=== PATIENT | male | born 1985 | race Caucasian/White ===

== ENCOUNTER 2017-08-06 06:27 | Emergency (ER) | payer SELFPAY | END 2017-08-06 08:20 | disposition left against medical advice (07) | LOC: FTE 08:20 | DX: Z53.21 Procedure and treatment not carried out due to patient leaving prior to being seen by health care provider (principal) ==

== ENCOUNTER 2018-01-27 14:08 | Emergency (ER) | payer SELFPAY ==
[2018-01-27] MEDS: SOD CHLORIDE 0.9% 1,000 ML IV (15:08)
[2018-01-27] MEDS: CEFTRIAXONE 1 GM/50 ML (PMX) 50 ML IVPB (15:08)
[2018-01-27 15:19] LABS: AADO2 Arterial 11.7 mmHg (7.0-24.0); Allen Test ACCEPTAB; Arterial Base Excess 0.7 mmol/L (-3.0-3); Arterial Blood Gas Oxygen Sat 98.1 mmHG (95.0-98.0); Arterial COHb 1.7 % (0.0-3.0); Arterial Fraction of Oxyhgb 96.3 % (93.0-99.0); Arterial HCO3 22.5 mmol/L (22.0-26.0); Arterial MetHb 0.1 % (0.0-1.5); Arterial Total Hemglobin 16.2 g/dl (12.0-18.0); Arterial pCO2 29.5 mmhg (35-45); MODE ROOM AIR; Site Right Radial
[2018-01-27 15:27] LABS: ADD MAN DIFF? NO
[2018-01-27 15:31] LABS: WHITE BLOOD COUNT 11.7 10^3/ul (4.8-10.8)
[2018-01-27 15:31] LABS: BASOPHIL # 0.1 10^3/ul (0.0-0.1); BASOPHILS % 0.6 % (0.0-2.0); EOSINOPHILS # 0.2 10^3/ul (0.0-0.5); EOSINOPHILS % 1.6 % (0.0-7.0); HEMATOCRIT 44.2 % (42.0-52.0); HEMOGLOBIN 15.8 g/dl (14.0-18.0); LYMPHOCYTES # 3.9 10^3/ul (0.8-2.9); LYMPHOCYTES % 33.5 % (15.0-51.0); MEAN CORPUSCULAR HEMOGLOBIN 29.9 pg (29.0-33.0); MEAN CORPUSCULAR HGB CONC 35.7 g/dl (32.0-37.0); MEAN CORPUSCULAR VOLUME 83.7 fl (82.0-101.0); MEAN PLATELET VOLUME 11.1 fl (7.4-10.4); MONOCYTE # 0.8 10^3/ul (0.3-0.9); MONOCYTES % 6.5 % (0.0-11.0); NEUTROPHIL # 6.7 10^3/ul (1.6-7.5); NEUTROPHILS % 57.5 % (39.0-77.0); PLATELET COUNT 269 10^3/UL (140-415); RED BLOOD COUNT 5.28 10^6/ul (4.70-6.10); RED CELL DISTRIBUTION WIDTH 11.9 % (11.5-14.5)
[2018-01-27] MEDS: KETOROLAC 15 MG INJ IV (15:34)
[2018-01-27 15:57] LABS: ALANINE AMINOTRANSFERASE 99 IU/L (13-69); ALBUMIN 4.6 g/dl (3.3-4.9); ALBUMIN/GLOBULIN RATIO 1.31; ALKALINE PHOSPHATASE 177 IU/L (42-121); ANION GAP 14 (8-16); ASPARTATE AMINO TRANSFERASE 50 IU/L (15-46); BILIRUBIN,INDIRECT 0.1 mg/dl (0-1.1); BILIRUBIN,TOTAL 0.1 mg/dl (0.2-1.3); BLOOD UREA NITROGEN 11 mg/dl (7-20); CALCIUM 9.7 mg/dl (8.4-10.2); CARBON DIOXIDE 27 mmol/L (21-31); CHLORIDE 102 mmol/L (97-110); CREATININE 0.73 mg/dl (0.61-1.24); GLUCOSE 391 mg/dl (70-220); LIPASE 64 U/L (23-300); PHOSPHORUS 4.8 mg/dl (2.5-4.9); POTASSIUM 3.9 mmol/L (3.5-5.1); SODIUM 139 mmol/L (135-144); TOTAL PROTEIN 8.1 g/dl (6.1-8.1)
[2018-01-27 16:01] LABS: ADD UMIC NO; UR ASCORBIC ACID NEGATIVE (NEGATIVE); UR BILIRUBIN (Dip) NEGATIVE (NEGATIVE); UR BLOOD (Dip) NEGATIVE (NEGATIVE); UR CLARITY CLEAR (CLEAR); UR COLOR STRAW (YELLOW); UR GLUCOSE (Dip) 3+ mg/dL (NEGATIVE); UR KETONES (Dip) NEGATIVE (NEGATIVE); UR LEUKOCYTE ESTERASE (Dip) NEGATIVE Leu/ul (NEGATIVE); UR NITRITE (Dip) NEGATIVE (NEGATIVE); UR SPECIFIC GRAVITY (Dip) 1.035 (1.003-1.030); UR TOTAL PROTEIN (Dip) NEGATIVE (NEGATIVE); UR UROBILINOGEN (Dip) NEGATIVE (NEGATIVE)
[2018-01-27 16:08] LABS: TROPONIN-I < 0.010 ng/ml (0.000-0.120)
[2018-01-27] MEDS: MUPIROCIN 2% 22 GM OINT TOP (16:28)
[2018-01-27] MEDS ORDERED: DEXTROSE 50% 50 ML SYRINGE IV (18:30)
[2018-01-27] MEDS: INSULIN REGULAR, HUMAN 100 UNIT/1 ML 3ML VIAL IVP (18:45)
== END 2018-01-27 19:10 | disposition home or self-care (01) ==
LOC: E/R 14:08
DX: E11.65 Type 2 diabetes mellitus with hyperglycemia (principal); E86.0 Dehydration; L03.011 Cellulitis of right finger; F15.10 Other stimulant abuse, uncomplicated; E87.3 Alkalosis; I10 Essential (primary) hypertension; F17.210 Nicotine dependence, cigarettes, uncomplicated; Z79.4 Long term (current) use of insulin
CPT/HCPCS: 36415; 36600; 71045; 80053; 81003; 82803; 82962; 83690; 83735; 84100; 84484; 85025; 93005; 96374; 96375; 99285-25

== ENCOUNTER 2018-07-17 20:19 | Emergency (ER) | payer SELFPAY ==
[2018-07-17] MEDS: KETOROLAC 30 MG INJ IM (23:21)
[2018-07-17] MEDS: CEFTRIAXONE 500 MG INJ IM (23:21)
[2018-07-17] MEDS: LIDOCAINE 1% (MPF) 5 ML VIAL INFIL (23:34)
== END 2018-07-18 01:24 | disposition left against medical advice (07) ==
LOC: FTE 20:19
DX: L02.212 Cutaneous abscess of back [any part, except buttock and flank] (principal); E11.9 Type 2 diabetes mellitus without complications; F17.210 Nicotine dependence, cigarettes, uncomplicated; Z79.4 Long term (current) use of insulin
CPT/HCPCS: 96372; 99284-25; J0696